=== PATIENT | female | born 1955 | race Caucasian/White ===

== ENCOUNTER 2016-12-13 | Outpatient (CLI) | payer SELFPAY | END 2016-12-13 23:59 | disposition EMS.NT ==

== ENCOUNTER 2021-06-25 14:59 | Outpatient (CLI) | payer MEDICARE, OTHER | END 2021-06-25 15:00 | disposition home or self-care (01) | LOC: COV 14:59 | PROVIDERS: ATTEND Internal Medicine | DX: Z01.812 Encounter for preprocedural laboratory examination (principal); Z20.822 Contact with and (suspected) exposure to COVID-19 ==

== ENCOUNTER 2021-07-22 08:00 | Outpatient (CLI) | payer MEDICARE, OTHER | END 2021-07-22 23:59 | LOC: COV 08:00 | PROVIDERS: ATTEND Family Medicine | DX: Z20.822 Contact with and (suspected) exposure to COVID-19 (principal) ==